=== PATIENT | male | born 2000 | race Hispanic/Latino ===

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

== ENCOUNTER 2024-02-02 06:26 | Emergency (ER) | payer OTHER ==
[~2024-02-02] VITALS: Ht 185.4 cm; Wt 110.0 kg
[2024-02-02 06:41] VITALS: BP 137/89
[2024-02-02] MEDS ORDERED: KETOROLAC TROMETHAMINE 30 MG/ML SDV IM ONE (06:55)
[2024-02-02 07:01] VITALS: BP 124/82
[2024-02-02 07:34] LABS: BASO% 0.4 % (0-3); EOS% 0.4 % (0-8); HEMATOCRIT 45.2 % (39.0-50.0); HEMOGLOBIN 14.8 g/dl (14.0-18.0); IMMATURE GRANULOCYTES 0.9 % (0.0-5.0); LYMPH% 24.2 % (15-41); MEAN CELL VOLUME 87.4 fL CALC (80.0-100.0); MEAN CORPUSCULAR HGB 28.6 pG CALC (26.0-32.0); MEAN CORPUSCULAR HGB CONC 32.7 g/dL CAL (32.0-36.0); MONO% 7.1 % (2-13); NEUT# 7.33 thou/uL (1.82-7.42); RED BLOOD COUNT 5.17 mill/uL (4.70-6.10); RED CELL DISTRI WIDTH 12.6 % (11.5-15.5)
[2024-02-02 07:52] LABS: ANION GAP 14 (6-22 (CALC)); BUN 10 mg/dL (9-20); BUN/CREATININE RATIO 14 (12-20 (CALC)); CARBON DIOXIDE 29 mmol/l (22-30); CHLORIDE 99 mmol/l (95-108); CREATININE 0.7 mg/dL (0.7-1.3); ESTIMATED GFR 134 ML/MIN (>=90 (CALC)); POTASSIUM 4.3 mmol/l (3.5-5.1); SODIUM 139 mmol/l (137-146)
[2024-02-02] MEDS ORDERED: PEPCID20 MG PO (08:23)
[2024-02-02] MEDS ORDERED: NAPROXEN500 MG PO (08:24)
[2024-02-02 09:04] VITALS: BP 115/76
== END 2024-02-02 09:08 | disposition home or self-care (01) | DRG 313 ==
LOC: ED 06:26
PROVIDERS: Family Medicine
DX: R07.89 Other chest pain (principal); M54.50 Low back pain, unspecified